=== PATIENT | female | born 2000 | race Caucasian/White ===

== ENCOUNTER 2024-01-14 10:54 | Outpatient (CLI) | payer OTHER, MEDICAID, SELFPAY ==
--- NOTE | 2024-01-14 11:07 | US_ITS ---
WS: [id number] US pelv w/transvag [id number] HISTORY: LOWER ABDOMINAL PAIN/IUD IN PLACE COMPARISON: None available. Uterus: 6.5 cm x 3.6 cm x 2.6 cm. Normal size anteverted uterus. No fibroid or mass. Endometrium: 0.5 cm. IUD normally positioned on the endometrium. No expulsion of the IUD. Right ovary: 4.1 cm x 2.8 cm x 2.5 cm. Normal size and vascularity, no cystic or solid masses. Hetero geneous collapsing corpus luteum in the RIGHT ovary measures 1.7 x 1.2 x 2.2 cm. Left ovary: 2.3 cm x 2.4 cm x 1.9 cm. Normal size and vascularity, no cystic or solid masses. Small amount of free fluid in the cul-de-sac. Fluid appears simple but is more than physiologic. IMPRESSION: 1. IUD in good position. 2. Small amount of simple free fluid in the cul-de-sac. Fluid is more than physiologic. May be relat ed to a ruptured cyst or follicle.
== END 2024-01-14 10:55 | disposition home or self-care (01) ==
LOC: RAD 11:01
PROVIDERS: PCP Nurse Practitioner; Visit Provider Nurse Practitioner
DX: R10.30 Lower abdominal pain, unspecified (principal); Z97.5 Presence of (intrauterine) contraceptive device
CPT/HCPCS: 76830; 76856

== ENCOUNTER → 2024-09-13 08:01 | Outpatient (BNVA) | payer OTHER, MEDICAID, SELFPAY | PROVIDERS: PCP Nurse Practitioner; Visit Provider Nurse Practitioner | DX: R10.9 Unspecified abdominal pain (principal) | CPT/HCPCS: 74019 ==